=== PATIENT | female | born 1985 | race Caucasian/White ===

== ENCOUNTER → 2021-05-13 | Outpatient (CLI) | payer OTHER ==
--- NOTE | 2021-05-13 14:31 | RAD ---
EXAM: Pelvis sonogram. HISTORY: Pain and vaginal bleeding. TECHNIQUE: Transabdominal and transvaginal sonographic imaging of the pelvis was performed. COMPARISON: None. FINDINGS: The uterus measures 9.0 x 6.1 x 4.4 cm. The endometrial stripe measures 8 mm in thickness. There is a 2.3 cm anterior uterine fibroid. The left ovary is surgically absent. The right ovary is n ormal in size and demonstrate normal blood flow. There is a 2.0 cm dominant right ovarian follicle/fo llicular cyst. There is trace fluid within the endocervical canal. There is no pelvic free fluid. IMPRESSION: 1. 2.3 cm uterine fibroid. 2. Trace fluid within the endocervical canal, likely due to blood products given a history of vaginal bleeding. 3. Normal endometrial stripe thickness for the premenopausal status of the patient. 4. Surgically absent left ovary and 2.0 cm dominant right ovarian follicle/follicular cyst. Electronically signed by: Kelly Livingston MD (05/13/2021 2:28 PM) [facility]
== END ==
LOC: US 12:44
PROVIDERS: ATTEND Preventive Medicine Occupational Medicine
DX: D25.9 Leiomyoma of uterus, unspecified (principal)
CPT/HCPCS: 76830

== ENCOUNTER → 2021-07-02 | Outpatient (CLI) | payer OTHER ==
--- NOTE | 2021-07-02 13:18 | RAD ---
EXAM: ULTRASOUND PELVIS INDICATION: Reason: ENLARGED UTERUS, FIBROID, PAIN / Spl. Instructions: / History: . COMPARISON: None available. TECHNIQUE: Transabdominal sonography was performed. FINDINGS: The uterus measures 8.4 x 6 x 4.5 cm. The endometrium measures 1.1 cm. 3.1 cm anterior myometrial lo w density focus likely uterine fibroid. The right ovary measures 4.5 x 3.3 x 2.7 cm. Cystic structure measures 2.5 x 2.4 x 2.6 cm with echog enic material dependently. Flow seen to the right ovary. There has been a left oophorectomy. There is no free fluid. IMPRESSION: 1. Myometrial lesion, likely uterine fibroid. 2. There has been a left oophorectomy. No evidence for right ovarian torsion. 3. 2.6 cm right adnexal cystic structure possibly hemorrhagic cyst. Given the complexity, follow-up ultrasound in 6 weeks is recommended. Electronically signed by: Niraj Cowart MD (07/02/2021 1:15 PM) [id number]
== END ==
LOC: US 08:43 → EEVIPCON 09:00
PROVIDERS: ATTEND Preventive Medicine Occupational Medicine
DX: N85.8 Other specified noninflammatory disorders of uterus (principal); E27.8 Other specified disorders of adrenal gland; Z90.721 Acquired absence of ovaries, unilateral
CPT/HCPCS: 76856